=== PATIENT | female | born 1940 | race Two or more races ===

== ENCOUNTER 2019-04-16 17:34 | Inpatient (IN) | payer MEDICARE ==
[~2019-04-16] VITALS: Ht 157.5 cm; Wt 41.3 kg
[2019-04-16] MEDS ORDERED: AMLODIPINE 5MG TABLET PO ONE (22:30)
[2019-04-16 22:41] LABS: CLARITY URINE CLOUDY (CLEAR); COLOR URINE YELLOW (YELLOW); KETONES URINE TRACE (NEGATIVE); LEUKOCYTE ESTERASE URINE 1+ (NEGATIVE); NITRITE URINE NEGATIVE (NEGATIVE); OCCULT BLOOD URINE NEGATIVE (NEGATIVE); PROTEIN URINE TRACE (NEGATIVE); SPECIFIC GRAVITY URINE 1.011 (1.005-1.030)
[2019-04-16 22:43] LABS: BASOPHILS % 1.3 % (0.0-2.0); EOSINOPHILS % 1.4 % (0.0-5.0); HEMATOCRIT. 43.9 % (36.0-48.0); HEMOGLOBIN. 14.4 g/dL (12.0-16.0); LYMPHOCYTES % 37.2 % (20.0-50.0); MEAN CORPUSCULAR HEMOGLOBIN 27.8 pg (28.0-32.0); MEAN PLATELET VOLUME 8.3 fl (7.4-10.4); MONOCYTES % 8.3 % (2.0-8.0); NEUTROPHILS % 51.8 % (40.0-76.0); PLATELET 273 x1000/uL (130-400); RED BLOOD CELL COUNT 5.17 mill/uL (4.2-5.4); RED CELL DISTRIBUTION WIDTH 14.1 % (11.6-14.6)
[2019-04-16 22:48] LABS: CHLORIDE 103 mEq/L (98-107)
[2019-04-16] MEDS ORDERED: SODIUM CHLORIDE 0.9% 1,000 ML IV ONE (23:15)
[2019-04-17] MEDS ORDERED: CEFTRIAXONE 1 G PREMIX 50 ML IV ONE (01:00)
[2019-04-17 10:00] VITALS: BP 118/56
[2019-04-17] MEDS ORDERED: ACETAMINOPHEN 650MG/20.3ML UDC GT PRN (10:15)
[2019-04-17] MEDS ORDERED: DOCUSATE SODIUM 100MG CAPSULE PO PRN (10:15)
[2019-04-17] MEDS ORDERED: AMLODIPINE 10MG TABLET PO SCH (10:45)
[2019-04-17] MEDS ORDERED: ENOXAPARIN 30MG/0.3ML SYR SUBCUT SCH (11:00)
[2019-04-17 11:37] VITALS: BP 130/68
[2019-04-17 12:00] VITALS: BP 130/68
[2019-04-17] MEDS ORDERED: SODIUM CHLORIDE 0.9% INJ 3ML FLUSH IVF SCH (14:00)
[2019-04-17 16:00] VITALS: BP 109/54
[2019-04-17] MEDS ORDERED: ALEN70TA68 MT (17:08)
[2019-04-17] MEDS ORDERED: AMLO10TA80 MT (17:08)
[2019-04-17] MEDS ORDERED: SIMV10TA6 MT (17:08)
[2019-04-17] MEDS ORDERED: PROP20TA7 MT (17:08)
[2019-04-17 18:06] VITALS: BP 109/54
[2019-04-17] MEDS ORDERED: PROPRANOLOL HCL 20MG TABLET PO SCH (21:00)
[2019-04-17] MEDS ORDERED: ATORVASTATIN CALCIUM 20MG TABLET PO SCH (21:00)
== END 2019-04-17 18:47 | disposition home or self-care (01) | DRG 690 ==
LOC: ER 17:34 → 8WST 04-17 00:08 → ENRESERV 04-17 07:13
PROVIDERS: ADMIT Ophthalmology; ATTEND Ophthalmology
DX: N30.90 Cystitis, unspecified without hematuria (principal); E78.5 Hyperlipidemia, unspecified; I10 Essential (primary) hypertension; M81.0 Age-related osteoporosis without current pathological fracture; M48.00 Spinal stenosis, site unspecified; Z79.899 Other long term (current) drug therapy; Z91.81 History of falling
CPT/HCPCS: 36415; 72131; 81003; 82550; 84484; 93005; 97162; 99285; C1893; J0696; J1650; J7030

== ENCOUNTER 2023-07-10 12:38 | Inpatient (IN) | payer MEDICARE ==
[~2023-07-10] VITALS: Ht 152.4 cm; Wt 52.2 kg
[~2023-07-10 12:38] MED LIST: ALEN70TA79 MT; AMLO10TA80 MT; PROP20TA7 MT; SIMV10TA97 MT
[2023-07-10] MEDS ORDERED: FENTANYL CITRATE/PF 2,500 MCG in SODIUM CHLORIDE 0.9% 200 ML IV STA (12:55)
[2023-07-10] MEDS ORDERED: FENTANYL CITRATE/PF 50MCG/ML 2ML VIAL IV STA (12:55)
[2023-07-10] MEDS ORDERED: NOREPINEPHRINE 8MG/250ML PMX 250 ML IV STA (12:55)
[2023-07-10] MEDS ORDERED: PIPERACILLIN/TAZ 3.375G PREMIX 50 ML IV ONE (13:00)
[2023-07-10] MEDS ORDERED: SODIUM CHLORIDE 0.9% 1000ML BAG (SEPSIS BOLUS) IV ONE (13:00)
[2023-07-10] MEDS ORDERED: SODIUM CHLORIDE 0.9% 1,000 ML IV ONE (13:00)
[2023-07-10] MEDS ORDERED: HYDROCORTISONE SOD SUCCINATE 100 MG/2 ML VIAL IV ONE (13:00)
[2023-07-10] MEDS ORDERED: MIDAZOLAM HCL 2 MG/2 ML VIAL IV ONE (13:00)
[2023-07-10] MEDS ORDERED: VANCOMYCIN 1G PREMIX 200 ML IV ONE (13:00)
[2023-07-10] MEDS ORDERED: LIDOCAINE HCL 1% 10 MG/ML 10ML VIAL ONE (13:38)
[2023-07-10 13:46] VITALS: PULSE 163
[2023-07-10] MEDS ORDERED: FENTANYL CITRATE 2,500 MCG in SODIUM CHLORIDE 0.9% 200 ML IV PRN (13:47)
[2023-07-10 14:08] LABS: PROTHROMBIN TIME 11.2 sec (9.6-11.0)
[2023-07-10 14:09] LABS: BASOPHILS % 0.5 % (0.0-2.0); HEMATOCRIT. 37.1 % (36.0-48.0); HEMOGLOBIN. 11.5 g/dL (12.0-16.0); MEAN CORPUSCULAR HEMOGLOBIN 26.3 pg (28.0-32.0); MEAN CORPUSCULAR VOLUME 84.7 fL (81.0-99.0); MONOCYTES % 11.5 % (2.0-8.0); PLATELET 170 x1000/uL (130-400); RED BLOOD CELL COUNT 4.38 mill/uL (4.2-5.4); RED CELL DISTRIBUTION WIDTH 18.9 % (11.6-14.6); WHITE BLOOD COUNT 19.6 x1000/uL (4.5-11.0)
[2023-07-10] MEDS ORDERED: PHENYLEPHRINE 50 MG in DEXT 5% WATER 240 ML IV PRN (14:15)
[2023-07-10 14:21] LABS: LACTIC ACID 4.7 mmol/L (0.4-2.0)
[2023-07-10 14:55] LABS: ALANINE AMINOTRANSFERASE 54 IU/L (10-49); ALBUMIN 3.2 g/dL (3.2-4.8); ASPARTATE AMINOTRANSFERASE 115 IU/L (<34); BILIRUBIN TOTAL 0.5 mg/dL (0.1-1.0); CALCIUM 8.3 mg/dL (8.7-10.4); CARBON DIOXIDE 26 mEq/L (21-32); CHLORIDE 118 mEq/L (98-107); CREATININE 2.8 mg/dL (0.6-1.0); GLUCOSE 143 mg/dL (70-105); PROTEIN TOTAL 6.6 g/dL (6.0-8.3); SODIUM 155 mEq/L (136-145); UREA NITROGEN BLOOD 90 mg/dL (9-23)
[2023-07-10 14:57] LABS: TROPONIN I HIGH SENSITIVITY 262 ng/L (3.0-34)
[2023-07-10] MEDS ORDERED: VANCOMYCIN 1G PREMIX 200 ML IV NR (15:00)
[2023-07-10] MEDS ORDERED: MIDAZOLAM 100MG/100ML PMX 100 ML IV PRN (15:00)
[2023-07-10] MEDS ORDERED: PIPERACILLIN/TAZ 3.375G PREMIX 50 ML IV NR (15:00)
[2023-07-10] MEDS ORDERED: MIDAZOLAM HCL 100 MG in SODIUM CHLORIDE 0.9% 100 ML IV PRN (15:00)
[2023-07-10] MEDS ORDERED: PHENYLEPHRINE 50 MG in DEXTROSE 5% WATER 250 ML IV PRN (15:00)
[2023-07-10 15:40] LABS: BG BASE EXCESS -7.5 mmol/L (-2.0-2.0); BG CARBOXYHEMOGLOBIN 0.3 % (0.5-1.5); BG DEOXYHEMOGLOBIN 7.1 % (0.0-5.0); BG FRACTION INSPIRED OXYGEN 100; BG HCO3 ACT 16.7 mmol/L (22.0-26.0); BG METHEMOGLOBIN 0.3 % (0.0-1.5); BG OXYGEN SATURATION 92.9 % (92.0-98.5); BG OXYHEMOGLOBIN 92.3 % (94.0-97.0); BG PCO2 30.2 mmHg (35.0-45.0); BG PH 7.361 (7.350-7.450); BG PO2 68.5 mmHg (75.0-100.0); BG SAMPLE SITE RIGHT RADIAL; BG TOTAL HEMOGLOBIN 12.3 g/dL (12.0-18.0); BG VENT MODE VENT - AC/VC
[2023-07-10] MEDS ORDERED: NOREPINEPHRINE 8MG/250ML PMX 250 ML IV ONE (18:45)
[2023-07-10 20:00] VITALS: PULSE 130; RESP 22
[2023-07-10] MEDS ORDERED: ACETAMINOPHEN 650MG/20.3ML UDC PO PRN (23:15)
[2023-07-10] MEDS ORDERED: VANCOMYCIN 1G PREMIX 200 ML IV SCH (23:15)
[2023-07-10] MEDS ORDERED: ACETAMINOPHEN 325MG TABLET PO PRN (23:15)
[2023-07-10] MEDS ORDERED: AMIODARONE HCL 50MG/ML 3ML VIAL IV ONE (23:15)
[2023-07-10] MEDS ORDERED: DIGOXIN 500MCG/2ML AMP IV NR (23:15)
[2023-07-10] MEDS ORDERED: IPRATROPIUM/ALBUTEROL 0.5-3(2.5)MG/3ML NEB HHN PRN (23:15)
[2023-07-10] MEDS ORDERED: AMIODARONE 150MG/100ML PREMIX 100 ML IV NR (23:27)
[2023-07-10] MEDS ORDERED: LORAZEPAM 2MG/ML UD SYRINGE IV PRN (23:30)
[2023-07-11] VITALS (71 sets, daily range): BP systolic 73–129; BP diastolic 41–83; PULSE 74–137; RESP 12–33; TEMP 97.5–98.3
[2023-07-11 00:05] LABS: CLARITY URINE TURBID (CLEAR); COLOR URINE YELLOW (YELLOW); GLUCOSE URINE NEGATIVE (NEGATIVE); KETONES URINE TRACE (NEGATIVE); LEUKOCYTE ESTERASE URINE 2+ (NEGATIVE); NITRITE URINE NEGATIVE (NEGATIVE); OCCULT BLOOD URINE 2+ (NEGATIVE); PROTEIN URINE 2+ (NEGATIVE); SPECIFIC GRAVITY URINE 1.021 (1.005-1.030); UROBILINOGEN URINE 0.2 E.U./dL (0.2-1.0)
[2023-07-11 00:18] LABS: WBC URINE TNTC /hpf (0-2)
[2023-07-11 00:19] LABS: BACTERIA URINE 2+; RBC URINE 0-2 /hpf (0-2); RENAL EPITHELIAL CELLS URINE 1+ /lpf; SQUAMOUS EPITHELIAL CELL URINE 1+ /lpf (RARE/1+)
[2023-07-11 01:03] LABS: LACTIC ACID 2.9 mmol/L (0.4-2.0)
[2023-07-11] MEDS: NOREPINEPHRINE 8MG/250ML PMX 250 ML IV PRN ×3 (02:12→21:23)
[2023-07-11 05:40] LABS: CALCIUM 7.8 mg/dL (8.7-10.4); POTASSIUM 4.1 mEq/L (3.5-5.1); THYROID STIMULATING HORMONE 1.18 uIU/mL (0.55-4.78)
[2023-07-11 05:57] LABS: CREATININE 1.8 mg/dL (0.6-1.0)
[2023-07-11] MEDS ORDERED: PIPERACILLIN/TAZOBACTAM 3.375 G in DEXTROSE 5% WATER 50 ML IV SCH (06:00)
[2023-07-11 08:32] LABS: HEMATOCRIT. 40.6 % (36.0-48.0); HEMOGLOBIN. 12.6 g/dL (12.0-16.0); MEAN CORPUSCULAR HEMOGLOBIN 26.1 pg (28.0-32.0); MEAN CORPUSCULAR VOLUME 84.2 fL (81.0-99.0); MEAN PLATELET VOLUME 10.8 fl (7.4-10.4); PLATELET 149 x1000/uL (130-400); RED BLOOD CELL COUNT 4.82 mill/uL (4.2-5.4); WHITE BLOOD COUNT 18.4 x1000/uL (4.5-11.0)
[2023-07-11 08:43] LABS: DIFFERENTIAL COMMENT 1
[2023-07-11 08:44] LABS: BG BASE EXCESS -1.6 mmol/L (-2.0-2.0); BG CARBOXYHEMOGLOBIN 0.3 % (0.5-1.5); BG DEOXYHEMOGLOBIN 1.1 % (0.0-5.0); BG FRACTION INSPIRED OXYGEN 100; BG METHEMOGLOBIN 0.3 % (0.0-1.5); BG OXYGEN SATURATION 98.9 % (92.0-98.5); BG OXYHEMOGLOBIN 98.3 % (94.0-97.0); BG PCO2 29.2 mmHg (35.0-45.0); BG PH 7.474 (7.350-7.450); BG PO2 148.9 mmHg (75.0-100.0); BG SAMPLE SITE RIGHT RADIAL; BG TOTAL HEMOGLOBIN 12.3 g/dL (12.0-18.0); BG VENT MODE VENT - AC
[2023-07-11] MEDS ORDERED: VANCOMYCIN 500MG PREMIX 100 ML IV SCH (09:00)
[2023-07-11] MEDS ORDERED: PIPERACILLIN/TAZ 3.375G PREMIX 50 ML IV SCH (09:00)
[2023-07-11] MEDS: PIPERACILLIN/TAZOBACTAM 3.375 G in DEXTROSE 5% WATER 50 ML IV SCH ×2 (09:26→21:14)
[2023-07-11] MEDS: PANTOPRAZOLE SODIUM 40 MG/VIAL IV SCH (09:27)
[2023-07-11] MEDS: ENOXAPARIN 30MG/0.3ML SYR SUBCUT SCH (09:27)
[2023-07-11] MEDS: DEXTROSE 5% WATER 1,000 ML IV SCH ×2 (10:31→23:11)
[2023-07-11] MEDS ORDERED: DIGOXIN 500MCG/2ML AMP IV NR (11:15)
[2023-07-11] MEDS: IPRATROPIUM/ALBUTEROL 0.5-3(2.5)MG/3ML NEB HHN SCH ×3 (12:13→20:38)
[2023-07-11 16:06] LABS: PLATELET ESTIMATE NORMAL
[2023-07-11 18:25] LABS: TROPONIN I HIGH SENSITIVITY 194 ng/L (3.0-34)
[2023-07-11] MEDS ORDERED: LORAZEPAM 4MG/ML INJ IV PRN (19:00)
[2023-07-11] MEDS ORDERED: FENTANYL CITRATE/PF 2,500 MCG in SODIUM CHLORIDE 0.9% 200 ML IV PRN (19:00)
[2023-07-12] VITALS (104 sets, daily range): BP systolic 85–156; BP diastolic 40–80; PULSE 72–104; RESP 11–23; TEMP 97.9–98.7
[2023-07-12] MEDS: IPRATROPIUM/ALBUTEROL 0.5-3(2.5)MG/3ML NEB HHN SCH ×6 (00:49→20:35)
[2023-07-12] MEDS: NOREPINEPHRINE 8MG/250ML PMX 250 ML IV PRN ×2 (06:12→18:33)
[2023-07-12 06:28] LABS: HEMATOCRIT. 34.2 % (36.0-48.0); HEMOGLOBIN. 10.2 g/dL (12.0-16.0); MEAN CORPUSCULAR HEMOGLOBIN 25.2 pg (28.0-32.0); MEAN CORPUSCULAR HGB CONC 29.8 g/dL (31.0-37.0); MEAN CORPUSCULAR VOLUME 84.4 fL (81.0-99.0); MEAN PLATELET VOLUME 10.5 fl (7.4-10.4); PLATELET 152 x1000/uL (130-400); RED BLOOD CELL COUNT 4.05 mill/uL (4.2-5.4); RED CELL DISTRIBUTION WIDTH 18.8 % (11.6-14.6); WHITE BLOOD COUNT 19.8 x1000/uL (4.5-11.0)
[2023-07-12 06:40] LABS: DIFFERENTIAL COMMENT 1
[2023-07-12 08:03] LABS: CREATININE 1.3 mg/dL (0.6-1.0); POTASSIUM 3.8 mEq/L (3.5-5.1)
[2023-07-12 08:55] LABS: BG BASE EXCESS -4.4 mmol/L (-2.0-2.0); BG CARBOXYHEMOGLOBIN 0.3 % (0.5-1.5); BG DEOXYHEMOGLOBIN 0.5 % (0.0-5.0); BG FRACTION INSPIRED OXYGEN 80; BG METHEMOGLOBIN 0.2 % (0.0-1.5); BG OXYGEN SATURATION 99.5 % (92.0-98.5); BG PCO2 34.3 mmHg (35.0-45.0); BG PH 7.383 (7.350-7.450); BG SAMPLE SITE RIGHT RADIAL; BG TOTAL HEMOGLOBIN 11.8 g/dL (12.0-18.0); BG VENT MODE VENT - AC
[2023-07-12] MEDS ORDERED: PIPERACILLIN/TAZOBACTAM 3.375 G in DEXTROSE 5% WATER 50 ML IV SCH (09:00)
[2023-07-12] MEDS: ENOXAPARIN 30MG/0.3ML SYR SUBCUT SCH (09:40)
[2023-07-12] MEDS: PIPERACILLIN/TAZOBACTAM 3.375 G in DEXTROSE 5% WATER 50 ML IV SCH ×2 (09:41→16:35)
[2023-07-12] MEDS: PANTOPRAZOLE SODIUM 40 MG/VIAL IV SCH (09:42)
[2023-07-12] MEDS: DEXTROSE 5% WATER 1,000 ML IV SCH (10:00)
[2023-07-12] MEDS: BLOOD SUGAR DIAGNOSTIC STRIP TEST SCH ×2 (12:00→18:00)
[2023-07-12] MEDS: VANCOMYCIN 500MG PREMIX 100 ML IV SCH ×2 (12:11→21:21)
[2023-07-12] MEDS: MULTIVITAMINS,THER W-MINERALS TABLET PO SCH (14:02)
[2023-07-12] MEDS: AZITHROMYCIN 500 MG in DEXT 5% WATER 250 ML IV SCH (14:02)
[2023-07-12] MEDS: PIPERACILLIN/TAZOBACTAM 3.375G in DEXT 5% WATER 50ML IV SCH ×2 (15:00→22:50)
[2023-07-12 16:59] LABS: PLATELET ESTIMATE NORMAL
[2023-07-12] MEDS: MORPHINE SULFATE 2 MG/ML CPJ (NOT FOR IM USE) IV PRN (23:44)
[2023-07-13] VITALS (67 sets, daily range): BP systolic 80–184; BP diastolic 37–104; PULSE 59–100; RESP 11–20; TEMP 98.6–99.1
[2023-07-13] MEDS: DEXTROSE 5% WATER 1,000 ML IV SCH (02:00)
[2023-07-13] MEDS: IPRATROPIUM/ALBUTEROL 0.5-3(2.5)MG/3ML NEB HHN SCH ×6 (02:09→20:53)
[2023-07-13] MEDS: MORPHINE SULFATE 2 MG/ML CPJ (NOT FOR IM USE) IV PRN ×2 (02:43→05:56)
[2023-07-13] MEDS: PIPERACILLIN/TAZOBACTAM 3.375G in DEXT 5% WATER 50ML IV SCH ×3 (05:56→22:18)
[2023-07-13] MEDS: BLOOD SUGAR DIAGNOSTIC STRIP TEST SCH ×4 (06:00→18:50)
[2023-07-13 06:12] LABS: BASOPHILS % 0.1 % (0.0-2.0); EOSINOPHILS % 1.3 % (0.0-5.0); HEMATOCRIT. 26.7 % (36.0-48.0); HEMOGLOBIN. 8.2 g/dL (12.0-16.0); MEAN CORPUSCULAR HEMOGLOBIN 25.9 pg (28.0-32.0); MEAN CORPUSCULAR HGB CONC 30.7 g/dL (31.0-37.0); MEAN CORPUSCULAR VOLUME 84.4 fL (81.0-99.0); MEAN PLATELET VOLUME 10.6 fl (7.4-10.4); MONOCYTES % 4.2 % (2.0-8.0); NEUTROPHILS % 86.4 % (40.0-76.0); PLATELET 110 x1000/uL (130-400); RED BLOOD CELL COUNT 3.17 mill/uL (4.2-5.4); RED CELL DISTRIBUTION WIDTH 18.2 % (11.6-14.6)
[2023-07-13 06:34] LABS: CALCIUM 7.5 mg/dL (8.7-10.4); CREATININE 0.9 mg/dL (0.6-1.0); POTASSIUM 3.2 mEq/L (3.5-5.1)
[2023-07-13 07:37] LABS: BG BASE EXCESS -0.6 mmol/L (-2.0-2.0); BG CARBOXYHEMOGLOBIN 0.3 % (0.5-1.5); BG DEOXYHEMOGLOBIN 1.1 % (0.0-5.0); BG FRACTION INSPIRED OXYGEN 50; BG HCO3 ACT 23.4 mmol/L (22.0-26.0); BG METHEMOGLOBIN 0.2 % (0.0-1.5); BG OXYGEN SATURATION 98.9 % (92.0-98.5); BG OXYHEMOGLOBIN 98.4 % (94.0-97.0); BG PCO2 35.8 mmHg (35.0-45.0); BG PH 7.433 (7.350-7.450); BG PO2 142.4 mmHg (75.0-100.0); BG SAMPLE SITE RIGHT RADIAL; BG TOTAL HEMOGLOBIN 10.1 g/dL (12.0-18.0); BG VENT MODE VENT - APRV
[2023-07-13] MEDS ORDERED: POTASSIUM CHLORIDE INJ 40 MEQ in DEXT 5% WATER 250 ML IV ONE (08:15)
[2023-07-13] MEDS: ZINC SULFATE 220 MG ( 50 ) CAPSULE PO SCH (08:59)
[2023-07-13] MEDS: KCL 20MEQ/100ML X 2 FOR TOTAL KCL 40MEQ/200ML IV SCH ×2 (08:59→10:41)
[2023-07-13] MEDS: PANTOPRAZOLE SODIUM 40 MG/VIAL IV SCH (08:59)
[2023-07-13] MEDS: MULTIVITAMINS,THER W-MINERALS TABLET PO SCH (08:59)
[2023-07-13] MEDS: ASCORBIC ACID 500 MG TABLET PO SCH (09:00)
[2023-07-13] MEDS: ENOXAPARIN 30MG/0.3ML SYR SUBCUT SCH (09:00)
[2023-07-13] MEDS: VANCOMYCIN 500MG PREMIX 100 ML IV SCH ×2 (09:01→22:18)
[2023-07-13 14:41] LABS: BG BASE EXCESS -1.5 mmol/L (-2.0-2.0); BG CARBOXYHEMOGLOBIN 0.3 % (0.5-1.5); BG DEOXYHEMOGLOBIN 1.6 % (0.0-5.0); BG FRACTION INSPIRED OXYGEN 50; BG HCO3 ACT 22.1 mmol/L (22.0-26.0); BG METHEMOGLOBIN 0.6 % (0.0-1.5); BG OXYGEN SATURATION 98.4 % (92.0-98.5); BG OXYHEMOGLOBIN 97.5 % (94.0-97.0); BG PCO2 32.7 mmHg (35.0-45.0); BG PH 7.447 (7.350-7.450); BG PO2 138.1 mmHg (75.0-100.0); BG SAMPLE SITE RIGHT RADIAL; BG TOTAL HEMOGLOBIN 9.9 g/dL (12.0-18.0); BG VENT MODE VENT - CPAP
[2023-07-13] MEDS: AZITHROMYCIN 500 MG in DEXT 5% WATER 250 ML IV SCH (14:52)
[2023-07-14] VITALS (59 sets, daily range): BP systolic 96–174; BP diastolic 42–106; PULSE 66–106; RESP 14–28; TEMP 98.1–100.7; O2SAT 100
[2023-07-14] MEDS: IPRATROPIUM/ALBUTEROL 0.5-3(2.5)MG/3ML NEB HHN SCH ×6 (00:26→20:57)
[2023-07-14] MEDS: PIPERACILLIN/TAZOBACTAM 3.375G in DEXT 5% WATER 50ML IV SCH ×3 (05:38→23:25)
[2023-07-14] MEDS: BLOOD SUGAR DIAGNOSTIC STRIP TEST SCH ×2 (06:00)
[2023-07-14 06:49] LABS: BASOPHILS % 0.1 % (0.0-2.0); EOSINOPHILS % 2.6 % (0.0-5.0); HEMATOCRIT. 28.4 % (36.0-48.0); HEMOGLOBIN. 8.8 g/dL (12.0-16.0); LYMPHOCYTES % 8.1 % (20.0-50.0); MEAN CORPUSCULAR HEMOGLOBIN 25.7 pg (28.0-32.0); MEAN CORPUSCULAR HGB CONC 30.9 g/dL (31.0-37.0); MEAN CORPUSCULAR VOLUME 83.3 fL (81.0-99.0); MEAN PLATELET VOLUME 10.2 fl (7.4-10.4); MONOCYTES % 5.6 % (2.0-8.0); NEUTROPHILS % 83.6 % (40.0-76.0); PLATELET 132 x1000/uL (130-400); RED BLOOD CELL COUNT 3.41 mill/uL (4.2-5.4); WHITE BLOOD COUNT 11.5 x1000/uL (4.5-11.0)
[2023-07-14 07:06] LABS: CALCIUM 8.5 mg/dL (8.7-10.4); CREATININE 0.9 mg/dL (0.6-1.0); POTASSIUM 4.1 mEq/L (3.5-5.1)
[2023-07-14] MEDS: VANCOMYCIN 500MG PREMIX 100 ML IV SCH (08:48)
[2023-07-14] MEDS: ENOXAPARIN 30MG/0.3ML SYR SUBCUT SCH (08:49)
[2023-07-14] MEDS: ASCORBIC ACID 500 MG TABLET PO SCH (08:49)
[2023-07-14] MEDS: PANTOPRAZOLE SODIUM 40 MG/VIAL IV SCH (08:49)
[2023-07-14] MEDS: MULTIVITAMINS,THER W-MINERALS TABLET PO SCH (08:49)
[2023-07-14] MEDS: ZINC SULFATE 220 MG ( 50 ) CAPSULE PO SCH (08:49)
[2023-07-14] MEDS: AZITHROMYCIN 500 MG in DEXT 5% WATER 250 ML IV SCH (12:57)
[2023-07-15] VITALS (30 sets, daily range): BP systolic 108–164; BP diastolic 44–92; PULSE 73–106; RESP 19–30; TEMP 97.1–100.4; O2SAT 98–100
[2023-07-15] MEDS: IPRATROPIUM/ALBUTEROL 0.5-3(2.5)MG/3ML NEB HHN SCH ×5 (00:38→15:42)
[2023-07-15] MEDS: PIPERACILLIN/TAZOBACTAM 3.375G in DEXT 5% WATER 50ML IV SCH ×3 (06:18→22:07)
[2023-07-15] MEDS: MULTIVITAMINS,THER W-MINERALS TABLET PO SCH (08:58)
[2023-07-15] MEDS: ENOXAPARIN 30MG/0.3ML SYR SUBCUT SCH (08:58)
[2023-07-15] MEDS: ASCORBIC ACID 500 MG TABLET PO SCH (08:58)
[2023-07-15] MEDS: PANTOPRAZOLE SODIUM 40 MG/VIAL IV SCH (08:58)
[2023-07-15] MEDS: ZINC SULFATE 220 MG ( 50 ) CAPSULE PO SCH (08:58)
[2023-07-15] MEDS: AZITHROMYCIN 500 MG in DEXT 5% WATER 250 ML IV SCH (13:06)
[2023-07-15 16:16] LABS: HEMATOCRIT. 29.9 % (36.0-48.0); HEMOGLOBIN. 9.3 g/dL (12.0-16.0); MEAN CORPUSCULAR HEMOGLOBIN 25.8 pg (28.0-32.0); MEAN CORPUSCULAR HGB CONC 31.2 g/dL (31.0-37.0); MEAN CORPUSCULAR VOLUME 82.7 fL (81.0-99.0); MEAN PLATELET VOLUME 9.7 fl (7.4-10.4); PLATELET 197 x1000/uL (130-400); RED BLOOD CELL COUNT 3.61 mill/uL (4.2-5.4); RED CELL DISTRIBUTION WIDTH 18.1 % (11.6-14.6)
[2023-07-15 16:21] LABS: DIFFERENTIAL COMMENT 1
[2023-07-15 16:29] LABS: CALCIUM 8.2 mg/dL (8.7-10.4); CARBON DIOXIDE 27 mEq/L (21-32); CHLORIDE 113 mEq/L (98-107); CREATININE 0.8 mg/dL (0.6-1.0); GLUCOSE 113 mg/dL (70-105); POTASSIUM 3.7 mEq/L (3.5-5.1); SODIUM 144 mEq/L (136-145); UREA NITROGEN BLOOD 21 mg/dL (9-23)
[2023-07-15] MEDS ORDERED: NALOXONE HCL 0.4MG/ML VIAL IV PRN (18:00)
[2023-07-15] MEDS ORDERED: LORAZEPAM 2MG/ML UD SYRINGE IV PRN (18:00)
[2023-07-15] MEDS ORDERED: IPRATROPIUM/ALBUTEROL 0.5-3(2.5)MG/3ML NEB HHN SCH (22:00)
[2023-07-16 00:28] VITALS: BP 134/61; PULSE 73; RESP 20; TEMP 97.8
[2023-07-16 04:00] VITALS: BP 128/60; PULSE 71; RESP 16; TEMP 97.3
[2023-07-16] MEDS: PIPERACILLIN/TAZOBACTAM 3.375G in DEXT 5% WATER 50ML IV SCH ×3 (05:47→21:16)
[2023-07-16 08:00] VITALS: BP 129/32; PULSE 80; RESP 17; TEMP 97.2
[2023-07-16] MEDS: PANTOPRAZOLE SODIUM 40 MG/VIAL IV SCH (08:10)
[2023-07-16] MEDS: ASCORBIC ACID 500 MG TABLET PO SCH (08:11)
[2023-07-16] MEDS: ZINC SULFATE 220 MG ( 50 ) CAPSULE PO SCH (08:11)
[2023-07-16] MEDS: MULTIVITAMINS,THER W-MINERALS TABLET PO SCH (08:11)
[2023-07-16] MEDS: ENOXAPARIN 30MG/0.3ML SYR SUBCUT SCH (08:11)
[2023-07-16] MEDS: AZITHROMYCIN 500 MG in DEXT 5% WATER 250 ML IV SCH (11:47)
[2023-07-16 12:00] VITALS: BP 164/66; PULSE 86; RESP 17; TEMP 97.6
[2023-07-16 16:00] VITALS: BP 162/76; PULSE 89; RESP 19; TEMP 97.9
[2023-07-16 20:20] VITALS: BP 144/48; PULSE 90; RESP 18; TEMP 97.1
[2023-07-17] VITALS (7 sets, daily range): BP systolic 105–144; BP diastolic 49–63; PULSE 62–76; RESP 18–20; TEMP 97.1–100.9
[2023-07-17 06:00] LABS: HEMATOCRIT 26.3 % (36.0-48.0); HEMOGLOBIN 8.4 g/dL (12.0-16.0); MEAN CORPUSCULAR HEMOGLOBIN 26.2 pg (28.0-32.0); MEAN CORPUSCULAR HGB CONC 31.8 g/dL (31.0-37.0); MEAN CORPUSCULAR VOLUME 82.4 fL (81.0-99.0); PLATELET 290 x1000/uL (130-400); RED CELL DISTRIBUTION WIDTH 17.9 % (11.6-14.6); WHITE BLOOD COUNT 10.9 x1000/uL (4.5-11.0)
[2023-07-17 06:45] LABS: CALCIUM 8.5 mg/dL (8.7-10.4); CARBON DIOXIDE 29 mEq/L (21-32); CHLORIDE 109 mEq/L (98-107); CREATININE 0.8 mg/dL (0.6-1.0); GLUCOSE 93 mg/dL (70-105); POTASSIUM 3.9 mEq/L (3.5-5.1); SODIUM 145 mEq/L (136-145); UREA NITROGEN BLOOD 26 mg/dL (9-23)
[2023-07-17] MEDS: PANTOPRAZOLE SODIUM 40 MG/VIAL IV SCH (10:26)
[2023-07-17] MEDS: ZINC SULFATE 220 MG ( 50 ) CAPSULE PO SCH (10:26)
[2023-07-17] MEDS: ASCORBIC ACID 500 MG TABLET PO SCH (10:26)
[2023-07-17] MEDS: MULTIVITAMINS,THER W-MINERALS TABLET PO SCH (10:26)
[2023-07-17] MEDS: ENOXAPARIN 30MG/0.3ML SYR SUBCUT SCH (10:26)
[2023-07-18] VITALS: BP 159/75; PULSE 86; RESP 18; TEMP 101.1
[2023-07-18 04:30] VITALS: BP 141/54; PULSE 79; RESP 18; TEMP 99.9
[2023-07-18 05:45] LABS: BASOPHILS % 0.6 % (0.0-2.0); EOSINOPHILS % 3.3 % (0.0-5.0); HEMOGLOBIN. 8.5 g/dL (12.0-16.0); LYMPHOCYTES % 11.6 % (20.0-50.0); MEAN CORPUSCULAR HGB CONC 31.5 g/dL (31.0-37.0); MEAN CORPUSCULAR VOLUME 82.4 fL (81.0-99.0); MEAN PLATELET VOLUME 9.2 fl (7.4-10.4); MONOCYTES % 8.5 % (2.0-8.0); PLATELET 341 x1000/uL (130-400); RED BLOOD CELL COUNT 3.28 mill/uL (4.2-5.4); RED CELL DISTRIBUTION WIDTH 17.5 % (11.6-14.6)
[2023-07-18 08:00] VITALS: BP 126/59; PULSE 86; RESP 18; TEMP 97
[2023-07-18] MEDS: MULTIVITAMINS,THER W-MINERALS TABLET PO SCH (09:01)
[2023-07-18] MEDS: PANTOPRAZOLE SODIUM 40 MG/VIAL IV SCH (09:01)
[2023-07-18] MEDS: ZINC SULFATE 220 MG ( 50 ) CAPSULE PO SCH (09:01)
[2023-07-18] MEDS: ASCORBIC ACID 500 MG TABLET PO SCH (09:01)
[2023-07-18] MEDS: ENOXAPARIN 30MG/0.3ML SYR SUBCUT SCH (09:02)
[2023-07-18 12:00] VITALS: BP 108/54; PULSE 89; RESP 18; TEMP 97.1
[2023-07-18 16:00] VITALS: BP 123/87; PULSE 74; RESP 18; TEMP 97.7
[2023-07-18 20:00] VITALS: BP 129/54; PULSE 69; RESP 19; TEMP 98.6
[2023-07-19] VITALS (7 sets, daily range): BP systolic 83–116; BP diastolic 48–76; PULSE 64–80; RESP 17–22; TEMP 97.1–98.6; O2SAT 97
[2023-07-19] MEDS: MULTIVITAMINS,THER W-MINERALS TABLET PO SCH (08:30)
[2023-07-19] MEDS: PANTOPRAZOLE SODIUM 40 MG/VIAL IV SCH (08:30)
[2023-07-19] MEDS: ASCORBIC ACID 500 MG TABLET PO SCH (08:30)
[2023-07-19] MEDS: ZINC SULFATE 220 MG ( 50 ) CAPSULE PO SCH (08:30)
[2023-07-19] MEDS: ENOXAPARIN 30MG/0.3ML SYR SUBCUT SCH (08:44)
[2023-07-20] VITALS: BP 107/72; PULSE 67; RESP 17; TEMP 97.7
[2023-07-20 04:00] VITALS: BP 133/48; PULSE 74; RESP 17; TEMP 97.8
[2023-07-20 08:00] VITALS: BP 107/81; PULSE 76; RESP 18; TEMP 98
[2023-07-20 08:14] VITALS: BP 107/81; PULSE 78; TEMP 98; O2SAT 95
[2023-07-20] MEDS: ENOXAPARIN 30MG/0.3ML SYR SUBCUT SCH (08:34)
[2023-07-20] MEDS: MULTIVITAMINS,THER W-MINERALS TABLET PO SCH (08:34)
[2023-07-20] MEDS: ASCORBIC ACID 500 MG TABLET PO SCH (08:34)
[2023-07-20] MEDS: ZINC SULFATE 220 MG ( 50 ) CAPSULE PO SCH (08:34)
[2023-07-20] MEDS: PANTOPRAZOLE SODIUM 40 MG/VIAL IV SCH (08:34)
== END 2023-07-20 11:00 | DRG 871 ==
LOC: ER 12:38 → EDBEDREQ 13:09 → EDBEDREQTM 17:24 → EDBEDREQ 17:24 → MICUSO 22:17 → CVICU 07-11 08:25 → 7WST 07-15 10:48
PROVIDERS: ADMIT Internal Medicine Pulmonary Disease; ATTEND Internal Medicine Pulmonary Disease
PROC: 0BH17EZ Insertion of Endotracheal Airway into Trachea, Via Natural or Artificial Opening (ICD-10-PCS; 2023-07-10)
PROC: 5A1945Z Respiratory Ventilation, 24-96 Consecutive Hours (ICD-10-PCS; 2023-07-10)
PROC: 02H633Z Insertion of Infusion Device into Right Atrium, Percutaneous Approach (ICD-10-PCS; 2023-07-10)
PROC: B548ZZA Ultrasonography of Superior Vena Cava, Guidance (ICD-10-PCS; 2023-07-10)
PROC: 5A1935Z Respiratory Ventilation, Less than 24 Consecutive Hours (ICD-10-PCS; principal; 2023-07-14)
DX: A41.9 Sepsis, unspecified organism (principal); J18.9 Pneumonia, unspecified organism; J96.01 Acute respiratory failure with hypoxia; R65.21 Severe sepsis with septic shock; N17.0 Acute kidney failure with tubular necrosis; J96.02 Acute respiratory failure with hypercapnia; S52.92XA Unspecified fracture of left forearm, initial encounter for closed fracture; S52.202A Unspecified fracture of shaft of left ulna, initial encounter for closed fracture; N39.0 Urinary tract infection, site not specified; E87.1 Hypo-osmolality and hyponatremia; I11.9 Hypertensive heart disease without heart failure; D64.9 Anemia, unspecified; Z20.822 Contact with and (suspected) exposure to COVID-19; F03.90 Unspecified dementia, unspecified severity, without behavioral disturbance, psychotic disturbance, mood disturbance, and anxiety; R13.10 Dysphagia, unspecified; L89.156 Pressure-induced deep tissue damage of sacral region; E11.9 Type 2 diabetes mellitus without complications; Z93.1 Gastrostomy status; Z74.01 Bed confinement status; Z79.899 Other long term (current) drug therapy; X58.XXXA Exposure to other specified factors, initial encounter; Y93.89 Activity, other specified; Y92.89 Other specified places as the place of occurrence of the external cause; Y99.8 Other external cause status; Z79.4 Long term (current) use of insulin
CPT/HCPCS: 31500; 36415; 36573; 36600; 71045; 73100; 73600; 80048; 80053; 80202; 81003; 82375; 82805; 82962; 83605; 83880; 84145; 84443; 84484; 85025; 85027; 86850; 86900; 87070; 87426; 87804; 92610; 93005; 93306; 94002; 94003; 94640; 99291; A6261; C1725; C9113; C9803; J0282; J0456; J1160; J1650; J1720; J2250; J2270; J2370; J2543; J3010; J3370; J3480; J3490; J7030; J7050; J7060; J7070